=== PATIENT | male | born 1950 | race Caucasian/White ===

== ENCOUNTER 2016-05-03 15:40 | Inpatient (IN) | payer OTHER ==
[~2016-05-03] VITALS: Ht 190.5 cm; Wt 123.4 kg
[~2016-05-03 15:40] MED LIST: ACETAMINOPHEN-1 EAC1 PO; ALDACTONE25 MG PO; ASPIR-LOW81 MG PO; ATENOLOL 25 MG TABLE; BACLOFEN20 MG PO; CITALOPRAM HBR10 MG PO; COUMADIN2 MG PO; COUMADIN3 MG PO; COUMADIN4 MG PO; CYCLOBENZAPRINE10 MG PO; DESYREL100 MG PO; DOCUSATE SODIU100 MG PO; FLAGYL500 MG PO; FLUOXETINE HCL40 MG PO; FOLIC ACID1 MG PO; LASIX20 MG PO; LISINOPRIL20 MG PO; LORAZEPAM1 MG PO; NICOTINE PATCH1 EAC2 TD; OXYCODONE HCL10 MG PO; OXYCODONE HCL5 MG PO; OXYCONTIN40 MG PO; PANTOPRAZOLE SO40 MG PO; PREDNISONE20 MG PO; PROTONIX40 MG PO; QUETIAPINE FUM100 MG PO; QUETIAPINE FUMA25 MG PO; SEROQUEL200 MG PO; SPIRONOLACTONE25 MG PO; TAMSULOSIN HCL0.4 MG PO; TENORMIN25 MG; THERAGRAN1 TABLET PO; TRAMADOL HCL50 MG PO; VITAMIN B-1100 MG PO; WARFARIN SODIUM4 MG PO; WARFARIN SODIUM5 MG PO; ZOLPIDEM TARTRA10 MG PO
[2016-05-03 16:19] LABS: ADD MIUA? YES; BILIRUBIN LARGE; BLOOD NEGATIVE; GLUCOSE (STRIP) NEGATIVE; KETONES 15; LEUKOCYTES SMALL; PROTEIN (STRIP) 30; SPECIFIC GRAVITY 1.027 (1.000-1.030)
[2016-05-03 16:22] LABS: COLOR AMBER ((YELLOW))
[2016-05-03 16:28] LABS: HEMATOCRIT 39.8 % (38.0-50.0); MCH 34.7 PG (29.0-34.0); MCHC 36.2 G/DL (30.0-36.0); MCV 95.9 FL (86-99); MEAN PLAT.VOLUME 10.5 uM^3 (9.0-12.4); PLATELET COUNT 280 K/uL (156-360); RBC DIS.WIDTH-CV 18.1 % (11.8-14.6); RBC DIS.WIDTH-SD 60.6 % (39-53); RED BLOOD COUNT 4.15 M/uL (4.00-5.50); WHITE BLOOD COUNT 11.7 K/uL (4.1-10.2)
[2016-05-03 16:36] LABS: ADD MEDTOX COMMENT Y; AMPHETAMINE NEGATIVE (500 ng/mL); BARBITURATES NEGATIVE (200 ng/mL); BENZODIAZEPINES PRESUMPTIVE POSITIVE (150 ng/mL); COCAINE PRESUMPTIVE POSITIVE (150 ng/mL); ICTOTEST NEGATIVE; INTERNAL CONTROLS VALID? YES; METHADONE NEGATIVE (200 ng/mL); METHAMPHETAMINE NEGATIVE (500 ng/mL); OPIATES (MORPHINE) NEGATIVE (100 ng/mL); OXYCODONE NEGATIVE (100 ng/mL); PHENCYCLIDINE NEGATIVE (25 ng/mL); PROPOXYPHENE NEGATIVE (300 ng/mL); THC CANNABINOIDS NEGATIVE (50 ng/mL); TRICYCLIC ANTIDEPRESSANTS PRESUMPTIVE POSITIVE (300 ng/mL)
[2016-05-03 16:37] LABS: CHLORIDE 105 mEq/L (99-109); POTASSIUM 4.1 mEq/L (3.7-5.4); SODIUM 138 mEq/L (136-147)
[2016-05-03 16:38] LABS: MAGNESIUM 1.6 mg/dL (1.3-2.7)
[2016-05-03 16:39] LABS: GLUCOSE 99 mg/dL (70-99)
[2016-05-03 16:41] LABS: ANION GAP 15 MEQ/L (2-14)
[2016-05-03 16:43] LABS: GFR ESTIMATE (CALCULATED) 54 mL/min/
[2016-05-03 16:45] LABS: INTER. NORMALIZED RATIO 1.2; PROTHROMBIN TIME 12.2 (9.2-11.2); PTT 22.3 (25-32); UREA NITROGEN (BUN) 11 mg/dL (9-23)
[2016-05-03 16:46] LABS: SALICYLATE < 5.0 MG/DL (15-30)
[2016-05-03 16:50] LABS: TROP-I INTERPRETATION NEGATIVE; TROPONIN-I < 0.01 ng/mL (0.0-0.30)
[2016-05-03 16:57] LABS: RED BLOOD CELLS NONE SEEN /HPF (0-5)
[2016-05-03 16:58] LABS: BACTERIA 2+; CASTS NONE SEEN /LPF; CRYSTALS PRESENT; EPITHELIAL CELLS 1+; MUCUS 3+; UCUL ADDED? YES
[2016-05-03 16:59] LABS: URIC ACID CRYSTALS 1+
[2016-05-03 17:00] LABS: CALCIUM OXALATE CRYSTALS FEW; NITRITE POSITIVE
[2016-05-03 17:23] LABS: CREATINE KINASE 68 IU/L (1-294)
[2016-05-03 17:25] LABS: BENZODIAZEPINES, URINE SCREEN POSITIVE (200 ng/mL)
[2016-05-03 17:29] LABS: EOSINOPHIL (%) 0.1 % (0-5); HEMATOLOGY COMMENT 1 SMEAR COMPATIBLE; IMMATURE GRANULOCYTE (%) 0.3 % (0.0-0.7); IMMATURE GRANULOCYTE COUNT 0.4 K/uL; LYMPHOCYTE COUNT 1.6 K/uL (1.0-2.8); MONOCYTE (%) 17.2 % (3-12); NEUTROPHIL (%) 68.6 % (45-76); PLAT.SUFFICIENCY NORMAL
[2016-05-03] MEDS ORDERED: LIBRIUM25 MG PO (19:09)
[2016-05-03] MEDS ORDERED: SEROQUEL200 MG PO (19:09)
[2016-05-03 19:13] LABS: BASE EXCESS -3.4 mEq/L (-3 to +3); BICARBONATE 21.4 mEq/L (22-26); CARBOXY HGB 2.2 % (0-5); METHEMOGLOBIN 1.1 % (0-1.5); PCO2 37 mm Hg (35-45); PO2 58 mm Hg (80-100); pH 7.37 (7.35-7.45)
[2016-05-03 19:14] LABS: COMMENTS - BLOOD GASES C+A+; DEVICE NC; O2 FLOW 1.5 L/MIN; SITE LR; TOTAL RESP RATE 16 resp/min
[2016-05-03 21:25] VITALS: BP 145/81
[2016-05-03 23:15] VITALS: BP 133/79
[2016-05-04 03:45] VITALS: BP 132/76
[2016-05-04 06:24] LABS: HEMATOCRIT 36.6 % (38.0-50.0); MCH 34.8 PG (29.0-34.0); MCHC 35.2 G/DL (30.0-36.0); MCV 98.7 FL (86-99); MEAN PLAT.VOLUME 10.9 uM^3 (9.0-12.4); PLATELET COUNT 254 K/uL (156-360); RBC DIS.WIDTH-CV 17.4 % (11.8-14.6); RBC DIS.WIDTH-SD 62.8 % (39-53); RED BLOOD COUNT 3.71 M/uL (4.00-5.50); WHITE BLOOD COUNT 11.7 K/uL (4.1-10.2)
[2016-05-04 06:49] LABS: ALKALINE PHOSPHATASE 141 IU/L (3-129); ANION GAP 13 MEQ/L (2-14); CHLORIDE 107 MEQ/L (99-109); GFR ESTIMATE (CALCULATED) > 59 mL/min/; GLUCOSE 74 mg/dL (70-99); POTASSIUM 4.2 MEQ/L (3.7-5.4); SAMPLE HEMOLYSIS CHECK 0; SAMPLE ICTERIC CHECK 0; SAMPLE LIPEMIA CHECK 0; SODIUM 140 MEQ/L (136-147); TOTAL BILIRUBIN 1.6 MG/DL (0.0-1.0); UREA NITROGEN (BUN) 14 mg/dL (9-23)
[2016-05-04 07:16] VITALS: BP 120/63
[2016-05-04 11:45] VITALS: BP 108/56
[2016-05-04 15:28] VITALS: BP 147/84
[2016-05-04 19:10] VITALS: BP 112/65
[2016-05-04 23:00] VITALS: BP 111/58
[2016-05-05 00:27] LABS: BASE EXCESS 0.2 mEq/L (-3 to +3); BICARBONATE 23.3 mEq/L (22-26); CARBOXY HGB 3.9 % (0-5); METHEMOGLOBIN 1.9 % (0-1.5); PCO2 32 mm Hg (35-45); PO2 69 mm Hg (80-100); pH 7.47 (7.35-7.45)
[2016-05-05 00:28] LABS: COMMENTS - BLOOD GASES C+; DEVICE NC; O2 FLOW 6 L/MIN; SITE RR; TOTAL RESP RATE 16 resp/min
[2016-05-05 03:00] VITALS: BP 104/57
[2016-05-05 08:30] VITALS: BP 126/77
[2016-05-05 11:57] VITALS: BP 111/61
[2016-05-05 16:00] VITALS: BP 117/69
[2016-05-05 19:36] VITALS: BP 97/56
[2016-05-05 23:52] VITALS: BP 134/67
[2016-05-06 04:30] VITALS: BP 127/68
[2016-05-06 06:48] LABS: INTER. NORMALIZED RATIO 1.3
[2016-05-06 07:40] VITALS: BP 130/88
[2016-05-06 08:26] LABS: HEMATOCRIT 35.1 % (38.0-50.0); MCH 35.7 PG (29.0-34.0); MCHC 36.5 G/DL (30.0-36.0); MCV 97.8 FL (86-99); MEAN PLAT.VOLUME 11.4 uM^3 (9.0-12.4); PLATELET COUNT 255 K/uL (156-360); RBC DIS.WIDTH-CV 17.5 % (11.8-14.6); RBC DIS.WIDTH-SD 62.7 % (39-53); RED BLOOD COUNT 3.59 M/uL (4.00-5.50); WHITE BLOOD COUNT 10.9 K/uL (4.1-10.2)
[2016-05-06 09:06] LABS: ANION GAP 15 MEQ/L (2-14); CHLORIDE 108 MEQ/L (99-109); GFR ESTIMATE (CALCULATED) > 59 mL/min/; GLUCOSE 74 mg/dL (70-99); POTASSIUM 3.3 MEQ/L (3.7-5.4); SAMPLE HEMOLYSIS CHECK 0; SAMPLE ICTERIC CHECK 0; SAMPLE LIPEMIA CHECK 0; SODIUM 144 MEQ/L (136-147); UREA NITROGEN (BUN) 13 mg/dL (9-23)
[2016-05-06 10:36] LABS: BASE EXCESS -2.1 mEq/L (-3 to +3); BICARBONATE 20.4 mEq/L (22-26); CARBOXY HGB 2.9 % (0-5); METHEMOGLOBIN 1.4 % (0-1.5); PCO2 28 mm Hg (35-45); PO2 54 mm Hg (80-100); pH 7.47 (7.35-7.45)
[2016-05-06 10:37] LABS: COMMENTS - BLOOD GASES A+C+; DEVICE NC; O2 FLOW 6 L/MIN; SITE RR; TOTAL RESP RATE 30 resp/min
[2016-05-06 12:00] VITALS: BP 109/71
[2016-05-06 15:50] VITALS: BP 137/69
[2016-05-06 20:00] VITALS: BP 135/74
[2016-05-06 20:20] LABS: METH RESISTANT S AUREUS PCR POSITIVE (NEGATIVE)
[2016-05-06 20:29] LABS: PROBE CHECK PASS
[2016-05-06 23:40] VITALS: BP 122/70
[2016-05-07] VITALS (14 sets, daily range): BP systolic 88–134; BP diastolic 53–86
[2016-05-07 06:07] LABS: HEMATOCRIT 37.3 % (38.0-50.0); MCH 34.2 PG (29.0-34.0); MCHC 35.1 G/DL (30.0-36.0); MCV 97.4 FL (86-99); MEAN PLAT.VOLUME 10.9 uM^3 (9.0-12.4); PLATELET COUNT 259 K/uL (156-360); RBC DIS.WIDTH-CV 17.2 % (11.8-14.6); RBC DIS.WIDTH-SD 60.7 % (39-53); RED BLOOD COUNT 3.83 M/uL (4.00-5.50); WHITE BLOOD COUNT 12.9 K/uL (4.1-10.2)
[2016-05-07 06:23] LABS: EOSINOPHIL (%) 0.5 % (0-5); EOSINOPHIL COUNT 0.1 K/uL (0-0.3); IMMATURE GRANULOCYTE (%) 0.4 % (0.0-0.7); IMMATURE GRANULOCYTE COUNT 0.1 K/uL; LYMPHOCYTE COUNT 1.9 K/uL (1.0-2.8); MONOCYTE (%) 13.4 % (3-12); MONOCYTE COUNT 1.7 K/uL (0-0.8); NEUTROPHIL (%) 70.7 % (45-76); NEUTROPHIL COUNT 9.1 K/uL (1.8-6.4)
[2016-05-07 06:38] LABS: ALKALINE PHOSPHATASE 113 IU/L (3-129); ANION GAP 12 MEQ/L (2-14); CHLORIDE 108 MEQ/L (99-109); GFR ESTIMATE (CALCULATED) > 59 mL/min/; MAGNESIUM 1.8 mg/dl (1.3-2.7); POTASSIUM 2.8 MEQ/L (3.7-5.4); SAMPLE HEMOLYSIS CHECK 0; SAMPLE ICTERIC CHECK 0; SAMPLE LIPEMIA CHECK 0; SODIUM 145 MEQ/L (136-147); TOTAL BILIRUBIN 1.4 MG/DL (0.0-1.0); UREA NITROGEN (BUN) 14 mg/dL (9-23)
[2016-05-07 06:41] LABS: GLUCOSE 95 mg/dL (70-99)
[2016-05-07 07:08] LABS: INTER. NORMALIZED RATIO 1.7; PROTHROMBIN TIME 18.1 (9.2-11.2)
[2016-05-07 09:17] LABS: HEMATOLOGY COMMENT 1 SMEAR COMPATIBLE; USER ID SDF
[2016-05-07 13:18] LABS: TROP-I INTERPRETATION NEGATIVE; TROPONIN-I 0.01 ng/mL (0.0-0.30)
[2016-05-07 18:02] LABS: BASE EXCESS 1.9 mEq/L (-3 to +3); BICARBONATE 28.2 mEq/L (22-26); CARBOXY HGB 2.4 % (0-5); COMMENTS - BLOOD GASES A+C+; DEVICE 840; FI02 100 %; METHEMOGLOBIN 1.5 % (0-1.5); PCO2 50 mm Hg (35-45); PO2 287 mm Hg (80-100); SITE RR; pH 7.36 (7.35-7.45)
[2016-05-07 18:03] LABS: MECHANICAL RATE 25 resp/min; MODE A/C; PEEP 10 CM/H20; TIDAL VOLUME 540 ML; TOTAL RESP RATE 25 resp/min
[2016-05-08] VITALS (24 sets, daily range): BP systolic 82–117; BP diastolic 44–68
[2016-05-08 05:18] LABS: BASE EXCESS -0.8 mEq/L (-3 to +3); BICARBONATE 25.4 mEq/L (22-26); CARBOXY HGB 2.1 % (0-5); METHEMOGLOBIN 1.3 % (0-1.5); PCO2 47 mm Hg (35-45); pH 7.34 (7.35-7.45)
[2016-05-08 05:19] LABS: DEVICE 840; FI02 50 %; MECHANICAL RATE 25 resp/min; MODE AC; PEEP 10 CM/H20; PO2 78 mm Hg (80-100); SITE RR; TIDAL VOLUME 540 ML; TOTAL RESP RATE 28 resp/min
[2016-05-08 05:44] LABS: HEMATOCRIT 36.8 % (38.0-50.0); MCH 33.5 PG (29.0-34.0); MCV 98.7 FL (86-99); MEAN PLAT.VOLUME 11.7 uM^3 (9.0-12.4); NRBC (%) 0.2 /100 WBC (0-0); PLATELET COUNT 258 K/uL (156-360); RBC DIS.WIDTH-CV 17.7 % (11.8-14.6); RBC DIS.WIDTH-SD 63.6 % (39-53); RED BLOOD COUNT 3.73 M/uL (4.00-5.50); WHITE BLOOD COUNT 10.2 K/uL (4.1-10.2)
[2016-05-08 05:52] LABS: INTER. NORMALIZED RATIO 1.9; PROTHROMBIN TIME 19.9 (9.2-11.2)
[2016-05-08 06:40] LABS: ALKALINE PHOSPHATASE 100 IU/L (3-129); ANION GAP 12 MEQ/L (2-14); CHLORIDE 110 MEQ/L (99-109); GFR ESTIMATE (CALCULATED) > 59 mL/min/; SAMPLE HEMOLYSIS CHECK 2; SAMPLE ICTERIC CHECK 0; SAMPLE LIPEMIA CHECK 0; SODIUM 144 MEQ/L (136-147); UREA NITROGEN (BUN) 17 mg/dL (9-23)
[2016-05-08 06:48] LABS: EOSINOPHIL (%) 0.1 % (0-5); IMMATURE GRANULOCYTE (%) 0.4 % (0.0-0.7); LYMPHOCYTE COUNT 1.3 K/uL (1.0-2.8); MONOCYTE (%) 5.3 % (3-12); MONOCYTE COUNT 0.5 K/uL (0-0.8); NEUTROPHIL (%) 81.3 % (45-76); NEUTROPHIL COUNT 8.3 K/uL (1.8-6.4)
[2016-05-08 06:50] LABS: GLUCOSE 161 mg/dL (70-99)
[2016-05-08 06:51] LABS: POTASSIUM 3.7 MEQ/L (3.7-5.4); TOTAL BILIRUBIN 0.8 MG/DL (0.0-1.0)
[2016-05-08 08:04] LABS: NO-CHARGE AST (GOT) 32 IU/L (15-37); POTASSIUM 3.1 MEQ/L (3.7-5.4)
[2016-05-08 16:45] LABS: ANION GAP 9 MEQ/L (2-14); CHLORIDE 110 MEQ/L (99-109); GFR ESTIMATE (CALCULATED) > 59 mL/min/; GLUCOSE 146 mg/dL (70-99); POTASSIUM 4.1 MEQ/L (3.7-5.4); SAMPLE HEMOLYSIS CHECK 1; SAMPLE ICTERIC CHECK 0; SAMPLE LIPEMIA CHECK 0; SODIUM 144 MEQ/L (136-147); UREA NITROGEN (BUN) 19 mg/dL (9-23)
[2016-05-09] VITALS (24 sets, daily range): BP systolic 81–100; BP diastolic 47–65
[2016-05-09 06:31] LABS: ANION GAP 7 MEQ/L (2-14); CHLORIDE 112 MEQ/L (99-109); GFR ESTIMATE (CALCULATED) > 59 mL/min/; GLUCOSE 133 mg/dL (70-99); MAGNESIUM 2.3 mg/dl (1.3-2.7); POTASSIUM 3.6 MEQ/L (3.7-5.4); SAMPLE HEMOLYSIS CHECK 0; SAMPLE ICTERIC CHECK 0; SAMPLE LIPEMIA CHECK 0; SODIUM 146 MEQ/L (136-147); UREA NITROGEN (BUN) 26 mg/dL (9-23)
[2016-05-09 06:35] LABS: HEMATOCRIT 32.8 % (38.0-50.0); MCH 34.8 PG (29.0-34.0); MCHC 35.4 G/DL (30.0-36.0); MCV 98.5 FL (86-99); MEAN PLAT.VOLUME 11.6 uM^3 (9.0-12.4); PLATELET COUNT 263 K/uL (156-360); RBC DIS.WIDTH-CV 17.8 % (11.8-14.6); RBC DIS.WIDTH-SD 63.6 % (39-53); RED BLOOD COUNT 3.33 M/uL (4.00-5.50)
[2016-05-09 06:36] LABS: WHITE BLOOD COUNT 17.1 K/uL (4.1-10.2)
[2016-05-09 06:47] LABS: INTER. NORMALIZED RATIO 1.7; PROTHROMBIN TIME 17.7 (9.2-11.2)
[2016-05-09 16:31] LABS: ANION GAP 7 MEQ/L (2-14); CHLORIDE 113 MEQ/L (99-109); GFR ESTIMATE (CALCULATED) > 59 mL/min/; GLUCOSE 140 mg/dL (70-99); MAGNESIUM 2.4 mg/dl (1.3-2.7); SAMPLE HEMOLYSIS CHECK 0; SAMPLE ICTERIC CHECK 0; SAMPLE LIPEMIA CHECK 0; SODIUM 146 MEQ/L (136-147); UREA NITROGEN (BUN) 31 mg/dL (9-23)
[2016-05-10] VITALS (24 sets, daily range): BP systolic 79–118; BP diastolic 42–70
[2016-05-10 06:04] LABS: HEMATOCRIT 33.2 % (38.0-50.0); MCH 33.3 PG (29.0-34.0); MCHC 33.1 G/DL (30.0-36.0); MCV 100.6 FL (86-99); MEAN PLAT.VOLUME 11.5 uM^3 (9.0-12.4); PLATELET COUNT 255 K/uL (156-360); RBC DIS.WIDTH-CV 18.1 % (11.8-14.6); RBC DIS.WIDTH-SD 65.9 % (39-53); WHITE BLOOD COUNT 15.8 K/uL (4.1-10.2)
[2016-05-10 06:37] LABS: INTER. NORMALIZED RATIO 1.4; PROTHROMBIN TIME 14.4 (9.2-11.2)
[2016-05-10 06:42] LABS: ANION GAP 8 MEQ/L (2-14); CHLORIDE 111 MEQ/L (99-109); GFR ESTIMATE (CALCULATED) > 59 mL/min/; GLUCOSE 129 mg/dL (70-99); MAGNESIUM 2.3 mg/dl (1.3-2.7); POTASSIUM 4.1 MEQ/L (3.7-5.4); SAMPLE HEMOLYSIS CHECK 0; SAMPLE ICTERIC CHECK 0; SAMPLE LIPEMIA CHECK 0; SODIUM 146 MEQ/L (136-147); UREA NITROGEN (BUN) 37 mg/dL (9-23)
[2016-05-10 16:02] LABS: INFLUENZA A VIRAL ANTIGEN NEGATIVE; INFLUENZA B VIRAL ANTIGEN NEGATIVE
[2016-05-10 16:18] LABS: ANION GAP 8 MEQ/L (2-14); CHLORIDE 112 MEQ/L (99-109); GFR ESTIMATE (CALCULATED) > 59 mL/min/; GLUCOSE 122 mg/dL (70-99); MAGNESIUM 2.4 mg/dl (1.3-2.7); POTASSIUM 4.4 MEQ/L (3.7-5.4); SAMPLE HEMOLYSIS CHECK 0; SAMPLE ICTERIC CHECK 0; SAMPLE LIPEMIA CHECK 0; SODIUM 148 MEQ/L (136-147); UREA NITROGEN (BUN) 40 mg/dL (9-23)
[2016-05-11] VITALS (20 sets, daily range): BP systolic 86–109; BP diastolic 50–69
[2016-05-11 05:27] LABS: HEMATOCRIT 36.1 % (38.0-50.0); MCH 33.6 PG (29.0-34.0); MCHC 32.7 G/DL (30.0-36.0); MCV 102.8 FL (86-99); MEAN PLAT.VOLUME 11.8 uM^3 (9.0-12.4); PLATELET COUNT 270 K/uL (156-360); RBC DIS.WIDTH-CV 18.7 % (11.8-14.6); RBC DIS.WIDTH-SD 69.7 % (39-53); RED BLOOD COUNT 3.51 M/uL (4.00-5.50); WHITE BLOOD COUNT 12.8 K/uL (4.1-10.2)
[2016-05-11 05:35] LABS: BASE EXCESS 3.9 mEq/L (-3 to +3); CARBOXY HGB 2.3 % (0-5); METHEMOGLOBIN 1.5 % (0-1.5); PO2 80 mm Hg (80-100); pH 7.31 (7.35-7.45)
[2016-05-11 05:36] LABS: BICARBONATE 31.7 mEq/L (22-26); COMMENTS - BLOOD GASES C+A+; DEVICE VENTILATOR; FI02 60 %; MECHANICAL RATE 15 resp/min; MODE AC; PCO2 63 mm Hg (35-45); PEEP 10 CM/H20; SITE LR; TIDAL VOLUME 550 ML; TOTAL RESP RATE 20 resp/min
[2016-05-11 05:51] LABS: INTER. NORMALIZED RATIO 1.3; PROTHROMBIN TIME 12.9 (9.2-11.2)
[2016-05-11 06:39] LABS: ANION GAP 7 MEQ/L (2-14); CHLORIDE 110 MEQ/L (99-109); GFR ESTIMATE (CALCULATED) > 59 mL/min/; GLUCOSE 130 mg/dL (70-99); MAGNESIUM 2.4 mg/dl (1.3-2.7); POTASSIUM 4.5 MEQ/L (3.7-5.4); SAMPLE HEMOLYSIS CHECK 0; SAMPLE ICTERIC CHECK 0; SAMPLE LIPEMIA CHECK 0; SODIUM 147 MEQ/L (136-147); UREA NITROGEN (BUN) 38 mg/dL (9-23)
[2016-05-11 07:50] LABS: FACTOR Xa INHIBITION (LMWH) 0.6 IU/mL
[2016-05-12] VITALS (19 sets, daily range): BP systolic 82–118; BP diastolic 51–65
[2016-05-12 05:46] LABS: HEMATOCRIT 37.6 % (38.0-50.0); MCH 33.8 PG (29.0-34.0); MCHC 32.7 G/DL (30.0-36.0); MCV 103.3 FL (86-99); PLATELET COUNT 274 K/uL (156-360); RBC DIS.WIDTH-CV 18.4 % (11.8-14.6); RBC DIS.WIDTH-SD 68.8 % (39-53); RED BLOOD COUNT 3.64 M/uL (4.00-5.50); WHITE BLOOD COUNT 14.3 K/uL (4.1-10.2)
[2016-05-12 06:05] LABS: INTER. NORMALIZED RATIO 1.2; PROTHROMBIN TIME 12.6 (9.2-11.2)
[2016-05-12 06:43] LABS: ANION GAP 7 MEQ/L (2-14); CHLORIDE 108 MEQ/L (99-109); GFR ESTIMATE (CALCULATED) > 59 mL/min/; GLUCOSE 139 mg/dL (70-99); MAGNESIUM 2.4 mg/dl (1.3-2.7); POTASSIUM 4.7 MEQ/L (3.7-5.4); SAMPLE HEMOLYSIS CHECK 0; SAMPLE ICTERIC CHECK 0; SAMPLE LIPEMIA CHECK 0; SODIUM 147 MEQ/L (136-147); UREA NITROGEN (BUN) 42 mg/dL (9-23)
[2016-05-13] VITALS (21 sets, daily range): BP systolic 91–122; BP diastolic 50–64
[2016-05-13 05:59] LABS: ANION GAP 9 MEQ/L (2-14); CHLORIDE 106 MEQ/L (99-109); GFR ESTIMATE (CALCULATED) > 59 mL/min/; GLUCOSE 116 mg/dL (70-99); MAGNESIUM 2.4 mg/dl (1.3-2.7); POTASSIUM 4.7 MEQ/L (3.7-5.4); SAMPLE HEMOLYSIS CHECK 0; SAMPLE ICTERIC CHECK 0; SAMPLE LIPEMIA CHECK 0; SODIUM 150 MEQ/L (136-147); UREA NITROGEN (BUN) 50 mg/dL (9-23)
[2016-05-14] VITALS (23 sets, daily range): BP systolic 97–121; BP diastolic 56–77
[2016-05-14 05:53] LABS: POINT-OF-CARE METER ID UU13113803
[2016-05-14 06:14] LABS: ANION GAP 8 MEQ/L (2-14); CHLORIDE 106 MEQ/L (99-109); GFR ESTIMATE (CALCULATED) > 59 mL/min/; GLUCOSE 100 mg/dL (70-99); MAGNESIUM 2.6 mg/dl (1.3-2.7); POTASSIUM 4.6 MEQ/L (3.7-5.4); SAMPLE HEMOLYSIS CHECK 0; SAMPLE ICTERIC CHECK 0; SAMPLE LIPEMIA CHECK 0; SODIUM 151 MEQ/L (136-147); UREA NITROGEN (BUN) 52 mg/dL (9-23)
[2016-05-14 10:52] LABS: HEMATOCRIT 37.1 % (38.0-50.0); MCH 34.7 PG (29.0-34.0); MCHC 33.7 G/DL (30.0-36.0); MCV 103.1 FL (86-99); MEAN PLAT.VOLUME 12.4 uM^3 (9.0-12.4); NRBC (%) 0.2 /100 WBC (0-0); PLATELET COUNT 275 K/uL (156-360); RBC DIS.WIDTH-SD 68.1 % (39-53); WHITE BLOOD COUNT 16.5 K/uL (4.1-10.2)
[2016-05-14 10:58] LABS: EOSINOPHIL (%) 0.3 % (0-5); EOSINOPHIL COUNT 0.1 K/uL (0-0.3); IMMATURE GRANULOCYTE (%) 0.7 % (0.0-0.7); IMMATURE GRANULOCYTE COUNT 0.1 K/uL; LYMPHOCYTE COUNT 1.2 K/uL (1.0-2.8); MONOCYTE (%) 14.8 % (3-12); MONOCYTE COUNT 2.5 K/uL (0-0.8); NEUTROPHIL (%) 77.1 % (45-76); NEUTROPHIL COUNT 12.7 K/uL (1.8-6.4)
[2016-05-14 11:40] LABS: HEMATOLOGY COMMENT 1 SMEAR COMPATIBLE; USER ID STC
[2016-05-14 12:34] LABS: POINT-OF-CARE METER ID UU13113803
[2016-05-14 17:26] LABS: POINT-OF-CARE METER ID UU14174217
[2016-05-14 23:56] LABS: POINT-OF-CARE METER ID UU13113803
[2016-05-15] VITALS (24 sets, daily range): BP systolic 0–116; BP diastolic 0–70
[2016-05-15 05:19] LABS: HEMATOCRIT 36.2 % (38.0-50.0); MCH 33.3 PG (29.0-34.0); MCHC 32.3 G/DL (30.0-36.0); MCV 103.1 FL (86-99); MEAN PLAT.VOLUME 12.3 uM^3 (9.0-12.4); PLATELET COUNT 273 K/uL (156-360); RBC DIS.WIDTH-CV 18.1 % (11.8-14.6); RBC DIS.WIDTH-SD 67.4 % (39-53); RED BLOOD COUNT 3.51 M/uL (4.00-5.50); WHITE BLOOD COUNT 18.5 K/uL (4.1-10.2)
[2016-05-15 05:46] LABS: ANION GAP 5 MEQ/L (2-14); CHLORIDE 107 MEQ/L (99-109); GFR ESTIMATE (CALCULATED) > 59 mL/min/; GLUCOSE 111 mg/dL (70-99); MAGNESIUM 2.8 mg/dl (1.3-2.7); POTASSIUM 4.4 MEQ/L (3.7-5.4); SAMPLE HEMOLYSIS CHECK 0; SAMPLE ICTERIC CHECK 0; SAMPLE LIPEMIA CHECK 0; SODIUM 149 MEQ/L (136-147); UREA NITROGEN (BUN) 54 mg/dL (9-23)
[2016-05-15 06:10] LABS: EOSINOPHIL (%) 0.4 % (0-5); EOSINOPHIL COUNT 0.1 K/uL (0-0.3); IMMATURE GRANULOCYTE (%) 1.3 % (0.0-0.7); IMMATURE GRANULOCYTE COUNT 0.2 K/uL; LYMPHOCYTE COUNT 1.8 K/uL (1.0-2.8); MONOCYTE COUNT 2.8 K/uL (0-0.8); NEUTROPHIL (%) 73.2 % (45-76); NEUTROPHIL COUNT 13.6 K/uL (1.8-6.4)
[2016-05-15 06:58] LABS: HEMATOLOGY COMMENT 1 SMEAR COMPATIBLE; PLAT.SUFFICIENCY ADEQUATE
[2016-05-15 14:38] LABS: POINT-OF-CARE METER ID UU13113748; POINT-OF-CARE USER ID 606021424
[2016-05-15 19:45] LABS: POINT-OF-CARE METER ID UU13113748
[2016-05-16] VITALS (24 sets, daily range): BP systolic 88–119; BP diastolic 52–71
[2016-05-16 00:49] LABS: POINT-OF-CARE METER ID UU13113803
[2016-05-16 05:49] LABS: POINT-OF-CARE METER ID UU13113803
[2016-05-16 05:53] LABS: HEMATOCRIT 35.6 % (38.0-50.0); MCH 33.8 PG (29.0-34.0); MCHC 32.6 G/DL (30.0-36.0); MCV 103.8 FL (86-99); MEAN PLAT.VOLUME 12.8 uM^3 (9.0-12.4); PLATELET COUNT 269 K/uL (156-360); RBC DIS.WIDTH-CV 18.3 % (11.8-14.6); RED BLOOD COUNT 3.43 M/uL (4.00-5.50); WHITE BLOOD COUNT 19.6 K/uL (4.1-10.2)
[2016-05-16 06:04] LABS: ANION GAP 6 MEQ/L (2-14); CHLORIDE 108 MEQ/L (99-109); GFR ESTIMATE (CALCULATED) > 59 mL/min/; GLUCOSE 108 mg/dL (70-99); MAGNESIUM 2.9 mg/dl (1.3-2.7); POTASSIUM 4.5 MEQ/L (3.7-5.4); SAMPLE HEMOLYSIS CHECK 0; SAMPLE ICTERIC CHECK 0; SAMPLE LIPEMIA CHECK 0; SODIUM 151 MEQ/L (136-147); UREA NITROGEN (BUN) 51 mg/dL (9-23)
[2016-05-16 06:26] LABS: EOSINOPHIL (%) 0.5 % (0-5); EOSINOPHIL COUNT 0.1 K/uL (0-0.3); IMMATURE GRANULOCYTE (%) 1.3 % (0.0-0.7); IMMATURE GRANULOCYTE COUNT 0.3 K/uL; LYMPHOCYTE COUNT 2.4 K/uL (1.0-2.8); MONOCYTE (%) 13.6 % (3-12); MONOCYTE COUNT 2.7 K/uL (0-0.8); NEUTROPHIL COUNT 14.1 K/uL (1.8-6.4)
[2016-05-16 07:15] LABS: HEMATOLOGY COMMENT 1 SMEAR COMPATIBLE; USER ID CL
[2016-05-16 12:44] LABS: POINT-OF-CARE METER ID UU13113803
[2016-05-16 15:45] LABS: POINT-OF-CARE METER ID UU13113803
[2016-05-17] VITALS (24 sets, daily range): BP systolic 82–117; BP diastolic 51–73
[2016-05-17 01:20] LABS: POINT-OF-CARE METER ID UU13113803
[2016-05-17 05:38] LABS: POINT-OF-CARE METER ID UU13113731
[2016-05-17 06:02] LABS: HEMATOCRIT 37.1 % (38.0-50.0); MCH 33.2 PG (29.0-34.0); MCHC 31.5 G/DL (30.0-36.0); MCV 105.4 FL (86-99); MEAN PLAT.VOLUME 12.8 uM^3 (9.0-12.4); PLATELET COUNT 290 K/uL (156-360); RBC DIS.WIDTH-CV 17.9 % (11.8-14.6); RBC DIS.WIDTH-SD 68.3 % (39-53); RED BLOOD COUNT 3.52 M/uL (4.00-5.50); WHITE BLOOD COUNT 20.6 K/uL (4.1-10.2)
[2016-05-17 06:16] LABS: EOSINOPHIL (%) 4.3 % (0-5); EOSINOPHIL COUNT 0.9 K/uL (0-0.3); IMMATURE GRANULOCYTE (%) 1.6 % (0.0-0.7); IMMATURE GRANULOCYTE COUNT 0.3 K/uL; LYMPHOCYTE COUNT 3.3 K/uL (1.0-2.8); MONOCYTE (%) 8.4 % (3-12); MONOCYTE COUNT 1.7 K/uL (0-0.8); NEUTROPHIL (%) 69.5 % (45-76); NEUTROPHIL COUNT 14.3 K/uL (1.8-6.4)
[2016-05-17 06:28] LABS: ALKALINE PHOSPHATASE 110 IU/L (3-129); ANION GAP 9 MEQ/L (2-14); CHLORIDE 107 MEQ/L (99-109); DIRECT BILIRUBIN 0.3 mg/dL (0.0-0.3); GFR ESTIMATE (CALCULATED) > 59 mL/min/; GLUCOSE 90 mg/dL (70-99); MAGNESIUM 2.5 mg/dl (1.3-2.7); POTASSIUM 4.3 MEQ/L (3.7-5.4); SAMPLE HEMOLYSIS CHECK 0; SAMPLE ICTERIC CHECK 0; SAMPLE LIPEMIA CHECK 0; SODIUM 148 MEQ/L (136-147); TOTAL BILIRUBIN 0.8 MG/DL (0.0-1.0); UREA NITROGEN (BUN) 44 mg/dL (9-23)
[2016-05-17 12:02] LABS: POINT-OF-CARE METER ID UU13113731
[2016-05-17 14:13] LABS: HEMATOLOGY COMMENT 1 SMEAR COMPATIBLE; USER ID SDF
[2016-05-17 18:24] LABS: POINT-OF-CARE METER ID UU13113731
[2016-05-18] VITALS (24 sets, daily range): BP systolic 95–126; BP diastolic 56–75
[2016-05-18 04:50] LABS: HEMATOCRIT 33.1 % (38.0-50.0); MCH 34.3 PG (29.0-34.0); MCHC 33.5 G/DL (30.0-36.0); MCV 102.2 FL (86-99); MEAN PLAT.VOLUME 11.9 uM^3 (9.0-12.4); PLATELET COUNT 268 K/uL (156-360); RBC DIS.WIDTH-CV 17.8 % (11.8-14.6); RBC DIS.WIDTH-SD 63.1 % (39-53); RED BLOOD COUNT 3.24 M/uL (4.00-5.50); WHITE BLOOD COUNT 19.3 K/uL (4.1-10.2)
[2016-05-18 04:58] LABS: CHLORIDE 108 mEq/L (99-109); POTASSIUM 3.9 mEq/L (3.7-5.4); SODIUM 145 mEq/L (136-147)
[2016-05-18 04:59] LABS: MAGNESIUM 2.2 mg/dL (1.3-2.7)
[2016-05-18 05:00] LABS: GLUCOSE 107 mg/dL (70-99)
[2016-05-18 05:02] LABS: ANION GAP 10 MEQ/L (2-14)
[2016-05-18 05:04] LABS: GFR ESTIMATE (CALCULATED) > 59 mL/min/
[2016-05-18 05:05] LABS: UREA NITROGEN (BUN) 37 mg/dL (9-23)
[2016-05-18 06:16] LABS: EOSINOPHIL COUNT 0.8 K/uL (0-0.3); IMMATURE GRANULOCYTE (%) 1.3 % (0.0-0.7); IMMATURE GRANULOCYTE COUNT 2.5 K/uL; LYMPHOCYTE COUNT 3.1 K/uL (1.0-2.8); MONOCYTE (%) 10.9 % (3-12); MONOCYTE COUNT 2.1 K/uL (0-0.8); NEUTROPHIL (%) 67.8 % (45-76); NEUTROPHIL COUNT 13.1 K/uL (1.8-6.4)
[2016-05-18 07:15] LABS: ANISOCYTOSIS 1+; HEMATOLOGY COMMENT 1 SMEAR COMPATIBLE; MACROCYTES 1+; USER ID CCL
[2016-05-18 14:46] LABS: BASE EXCESS 8.1 mEq/L (-3 to +3); CARBOXY HGB 2.5 % (0-5); METHEMOGLOBIN 2.3 % (0-1.5); PCO2 41 mm Hg (35-45); PO2 82 mm Hg (80-100)
[2016-05-18 14:47] LABS: COMMENTS - BLOOD GASES NAC+; DEVICE 840; FI02 75 %; INSPIRATION TIME 0.9 seconds; MECHANICAL RATE 18 resp/min; MODE A/C; PEEP 5 CM/H20; SITE LR; TIDAL VOLUME 520 ML; TOTAL RESP RATE 33 resp/min
[2016-05-19] VITALS (24 sets, daily range): BP systolic 90–127; BP diastolic 51–74
[2016-05-19 00:20] LABS: POINT-OF-CARE METER ID UU13113803
[2016-05-19 05:37] LABS: HEMATOCRIT 31.5 % (38.0-50.0); MCH 33.1 PG (29.0-34.0); MCHC 32.4 G/DL (30.0-36.0); MCV 102.3 FL (86-99); MEAN PLAT.VOLUME 12.3 uM^3 (9.0-12.4); PLATELET COUNT 269 K/uL (156-360); RBC DIS.WIDTH-CV 17.1 % (11.8-14.6); RBC DIS.WIDTH-SD 63.7 % (39-53); RED BLOOD COUNT 3.08 M/uL (4.00-5.50); WHITE BLOOD COUNT 21.5 K/uL (4.1-10.2)
[2016-05-19 05:57] LABS: POINT-OF-CARE METER ID UU13113803
[2016-05-19 06:21] LABS: EOSINOPHIL (%) 2.4 % (0-5); EOSINOPHIL COUNT 0.5 K/uL (0-0.3); IMMATURE GRANULOCYTE (%) 0.9 % (0.0-0.7); IMMATURE GRANULOCYTE COUNT 0.2 K/uL; LYMPHOCYTE COUNT 1.7 K/uL (1.0-2.8); MONOCYTE (%) 8.7 % (3-12); MONOCYTE COUNT 1.9 K/uL (0-0.8); NEUTROPHIL (%) 79.8 % (45-76); NEUTROPHIL COUNT 17.1 K/uL (1.8-6.4)
[2016-05-19 06:47] LABS: ANION GAP 4 MEQ/L (2-14); CHLORIDE 106 MEQ/L (99-109); GFR ESTIMATE (CALCULATED) > 59 mL/min/; GLUCOSE 101 mg/dL (70-99); POTASSIUM 3.9 MEQ/L (3.7-5.4); SAMPLE HEMOLYSIS CHECK 0; SAMPLE ICTERIC CHECK 0; SAMPLE LIPEMIA CHECK 0; SODIUM 141 MEQ/L (136-147); UREA NITROGEN (BUN) 30 mg/dL (9-23)
[2016-05-19 07:01] LABS: MAGNESIUM 2.1 mg/dl (1.3-2.7)
[2016-05-19 08:06] LABS: ANISOCYTOSIS 1+; HEMATOLOGY COMMENT 1 SMEAR COMPATIBLE; HYPOCHROMASIA 1+; MACROCYTES 1+; PLAT.SUFFICIENCY ADEQUATE; TARGET CELLS OCC; USER ID TLW
[2016-05-19 09:05] LABS: ALKALINE PHOSPHATASE 97 IU/L (3-129); CREATINE KINASE 15 IU/L (1-294); DIRECT BILIRUBIN 0.7 mg/dL (0.0-0.3)
[2016-05-19 09:06] LABS: TOTAL BILIRUBIN 1.5 MG/DL (0.0-1.0)
[2016-05-19 09:07] LABS: BASE EXCESS 7.9 mEq/L (-3 to +3); CARBOXY HGB 2.6 % (0-5); PCO2 42 mm Hg (35-45); PO2 75 mm Hg (80-100); SITE LR; pH 7.49 (7.35-7.45)
[2016-05-19 09:08] LABS: COMMENTS - BLOOD GASES A+C+; DEVICE 840 PB; FI02 60 %; INSPIRATION TIME 0.92 seconds; MECHANICAL RATE 18 resp/min; MODE ACVC+; PEEP 10 CM/H20; TIDAL VOLUME 520 ML; TOTAL RESP RATE 33 resp/min
[2016-05-19 12:54] LABS: POINT-OF-CARE METER ID UU13113803
[2016-05-19 18:25] LABS: POINT-OF-CARE METER ID UU14174217; POINT-OF-CARE USER ID 606021424
[2016-05-20] VITALS (24 sets, daily range): BP systolic 85–118; BP diastolic 53–70
[2016-05-20 01:25] LABS: POINT-OF-CARE METER ID UU13113803
[2016-05-20 04:47] LABS: HEMATOCRIT 29.5 % (38.0-50.0); MCH 34.1 PG (29.0-34.0); MCHC 33.6 G/DL (30.0-36.0); MCV 101.7 FL (86-99); MEAN PLAT.VOLUME 11.9 uM^3 (9.0-12.4); PLATELET COUNT 248 K/uL (156-360); RBC DIS.WIDTH-SD 60.3 % (39-53); WHITE BLOOD COUNT 21.3 K/uL (4.1-10.2)
[2016-05-20 04:57] LABS: CHLORIDE 107 mEq/L (99-109); POTASSIUM 3.6 mEq/L (3.7-5.4); SODIUM 141 mEq/L (136-147)
[2016-05-20 04:58] LABS: MAGNESIUM 1.9 mg/dL (1.3-2.7)
[2016-05-20 04:59] LABS: GLUCOSE 110 mg/dL (70-99)
[2016-05-20 05:00] LABS: ANION GAP 9 MEQ/L (2-14)
[2016-05-20 05:03] LABS: GFR ESTIMATE (CALCULATED) > 59 mL/min/
[2016-05-20 05:04] LABS: UREA NITROGEN (BUN) 31 mg/dL (9-23)
[2016-05-20 06:13] LABS: POINT-OF-CARE METER ID UU13113731
[2016-05-20 06:57] LABS: EOSINOPHIL (%) 2.8 % (0-5); EOSINOPHIL COUNT 0.6 K/uL (0-0.3); HEMATOLOGY COMMENT 1 SMEAR COMPATIBLE; IMMATURE GRANULOCYTE (%) 0.8 % (0.0-0.7); IMMATURE GRANULOCYTE COUNT 1.8 K/uL; LYMPHOCYTE COUNT 1.9 K/uL (1.0-2.8); MONOCYTE (%) 9.1 % (3-12); MONOCYTE COUNT 1.9 K/uL (0-0.8); NEUTROPHIL (%) 78.2 % (45-76); NEUTROPHIL COUNT 16.7 K/uL (1.8-6.4); USER ID CL
[2016-05-20 23:30] LABS: POINT-OF-CARE METER ID UU13113731
[2016-05-21] VITALS (28 sets, daily range): BP systolic 78–116; BP diastolic 44–71
[2016-05-21 05:17] LABS: POINT-OF-CARE METER ID UU13113803
[2016-05-21 06:43] LABS: HEMATOCRIT 27.3 % (38.0-50.0); MCH 33.5 PG (29.0-34.0); MCHC 33.3 G/DL (30.0-36.0); MCV 100.4 FL (86-99); MEAN PLAT.VOLUME 11.8 uM^3 (9.0-12.4); PLATELET COUNT 253 K/uL (156-360); RBC DIS.WIDTH-CV 16.6 % (11.8-14.6); RBC DIS.WIDTH-SD 60.3 % (39-53); RED BLOOD COUNT 2.72 M/uL (4.00-5.50)
[2016-05-21 06:49] LABS: EOSINOPHIL (%) 3.2 % (0-5); EOSINOPHIL COUNT 0.6 K/uL (0-0.3); IMMATURE GRANULOCYTE (%) 0.7 % (0.0-0.7); IMMATURE GRANULOCYTE COUNT 0.1 K/uL; MONOCYTE (%) 8.8 % (3-12); MONOCYTE COUNT 1.7 K/uL (0-0.8); NEUTROPHIL (%) 76.8 % (45-76); NEUTROPHIL COUNT 14.6 K/uL (1.8-6.4)
[2016-05-21 07:07] LABS: ANION GAP 7 MEQ/L (2-14); CHLORIDE 104 MEQ/L (99-109); GFR ESTIMATE (CALCULATED) > 59 mL/min/; GLUCOSE 95 mg/dL (70-99); POTASSIUM 3.6 MEQ/L (3.7-5.4); SAMPLE HEMOLYSIS CHECK 0; SAMPLE ICTERIC CHECK 0; SAMPLE LIPEMIA CHECK 0; SODIUM 140 MEQ/L (136-147); UREA NITROGEN (BUN) 30 mg/dL (9-23)
[2016-05-21 09:20] LABS: HEMATOLOGY COMMENT 1 SMEAR COMPATIBLE; USER ID LYM
[2016-05-21 12:05] LABS: POINT-OF-CARE METER ID UU13113803
[2016-05-21 18:26] LABS: POINT-OF-CARE METER ID UU13113803
[2016-05-22] VITALS (24 sets, daily range): BP systolic 93–118; BP diastolic 50–72
[2016-05-22 01:25] LABS: POINT-OF-CARE METER ID UU13113803; POINT-OF-CARE USER ID PHATLC
[2016-05-22 06:23] LABS: MCH 34.1 PG (29.0-34.0); MCHC 33.2 G/DL (30.0-36.0); MCV 102.6 FL (86-99); MEAN PLAT.VOLUME 12.1 uM^3 (9.0-12.4); PLATELET COUNT 244 K/uL (156-360); RBC DIS.WIDTH-CV 16.6 % (11.8-14.6); RBC DIS.WIDTH-SD 61.6 % (39-53); RED BLOOD COUNT 2.73 M/uL (4.00-5.50); WHITE BLOOD COUNT 17.4 K/uL (4.1-10.2)
[2016-05-22 06:29] LABS: POINT-OF-CARE METER ID UU13113803; POINT-OF-CARE USER ID PHATLC
[2016-05-22 06:34] LABS: BASOPHIL COUNT 0.1 K/uL (0-0.1); EOSINOPHIL COUNT 1.4 K/uL (0-0.3); IMMATURE GRANULOCYTE COUNT 0.2 K/uL; LYMPHOCYTE COUNT 2.4 K/uL (1.0-2.8); MONOCYTE (%) 6.2 % (3-12); MONOCYTE COUNT 1.1 K/uL (0-0.8); NEUTROPHIL (%) 70.6 % (45-76); NEUTROPHIL COUNT 12.3 K/uL (1.8-6.4)
[2016-05-22 06:51] LABS: ANION GAP 8 MEQ/L (2-14); CHLORIDE 105 MEQ/L (99-109); GFR ESTIMATE (CALCULATED) > 59 mL/min/; GLUCOSE 102 mg/dL (70-99); MAGNESIUM 2.1 mg/dl (1.3-2.7); SAMPLE HEMOLYSIS CHECK 0; SAMPLE ICTERIC CHECK 0; SAMPLE LIPEMIA CHECK 0; SODIUM 140 MEQ/L (136-147); UREA NITROGEN (BUN) 29 mg/dL (9-23)
[2016-05-22 07:52] LABS: HEMATOLOGY COMMENT 1 SMEAR COMPATIBLE; USER ID LYM
[2016-05-22 11:59] LABS: POINT-OF-CARE METER ID UU13113803
[2016-05-22 18:31] LABS: POINT-OF-CARE METER ID UU13113803
[2016-05-23] VITALS (18 sets, daily range): BP systolic 63–126; BP diastolic 35–72
[2016-05-23 00:35] LABS: POINT-OF-CARE METER ID UU13113803
[2016-05-23 06:34] LABS: HEMATOCRIT 27.5 % (38.0-50.0); MCH 34.5 PG (29.0-34.0); MCHC 33.1 G/DL (30.0-36.0); MCV 104.2 FL (86-99); MEAN PLAT.VOLUME 11.8 uM^3 (9.0-12.4); PLATELET COUNT 247 K/uL (156-360); RBC DIS.WIDTH-CV 16.9 % (11.8-14.6); RBC DIS.WIDTH-SD 63.8 % (39-53); RED BLOOD COUNT 2.64 M/uL (4.00-5.50); WHITE BLOOD COUNT 16.7 K/uL (4.1-10.2)
[2016-05-23 06:36] LABS: POINT-OF-CARE METER ID UU13113803
[2016-05-23 07:01] LABS: ANION GAP 7 MEQ/L (2-14); CHLORIDE 104 MEQ/L (99-109); GFR ESTIMATE (CALCULATED) > 59 mL/min/; GLUCOSE 106 mg/dL (70-99); POTASSIUM 4.3 MEQ/L (3.7-5.4); SAMPLE HEMOLYSIS CHECK 0; SAMPLE ICTERIC CHECK 0; SAMPLE LIPEMIA CHECK 0; SODIUM 137 MEQ/L (136-147); UREA NITROGEN (BUN) 22 mg/dL (9-23)
[2016-05-23 07:50] LABS: BASOPHIL COUNT 0.1 K/uL (0-0.1); EOSINOPHIL (%) 8.8 % (0-5); EOSINOPHIL COUNT 1.5 K/uL (0-0.3); HEMATOLOGY COMMENT 1 SMEAR COMPATIBLE; IMMATURE GRANULOCYTE (%) 0.7 % (0.0-0.7); IMMATURE GRANULOCYTE COUNT 0.1 K/uL; LYMPHOCYTE COUNT 2.3 K/uL (1.0-2.8); MONOCYTE (%) 6.3 % (3-12); MONOCYTE COUNT 1.1 K/uL (0-0.8); NEUTROPHIL (%) 70.3 % (45-76); NEUTROPHIL COUNT 11.8 K/uL (1.8-6.4)
[2016-05-23 12:22] LABS: POINT-OF-CARE METER ID UU13113803
== END 2016-05-23 18:50 | DRG 917 ==
LOC: EME 15:40 → 4EAST 20:16 → 4WEST 20:16 → EDOF 20:16 → 4EAST 21:19 → 4WEST 05-07 12:24
PROVIDERS: Emergency Medicine; Hospitalist; Internal Medicine; Internal Medicine Critical Care Medicine; Internal Medicine Nephrology; Internal Medicine Pulmonary Disease; Specialist
PROC: 0BH17EZ Insertion of Endotracheal Airway into Trachea, Via Natural or Artificial Opening (ICD-10-PCS; principal; 2016-05-07)
PROC: 5A1955Z Respiratory Ventilation, Greater than 96 Consecutive Hours (ICD-10-PCS; principal; 2016-05-07)
PROC: 0BC88ZZ Extirpation of Matter from Left Upper Lobe Bronchus, Via Natural or Artificial Opening Endoscopic (ICD-10-PCS; 2016-05-12)
PROC: 0BCB8ZZ Extirpation of Matter from Left Lower Lobe Bronchus, Via Natural or Artificial Opening Endoscopic (ICD-10-PCS; 2016-05-12)
PROC: 0BC58ZZ Extirpation of Matter from Right Middle Lobe Bronchus, Via Natural or Artificial Opening Endoscopic (ICD-10-PCS; 2016-05-12)
PROC: 0BC48ZZ Extirpation of Matter from Right Upper Lobe Bronchus, Via Natural or Artificial Opening Endoscopic (ICD-10-PCS; 2016-05-12)
PROC: 0BC68ZZ Extirpation of Matter from Right Lower Lobe Bronchus, Via Natural or Artificial Opening Endoscopic (ICD-10-PCS; 2016-05-12)
PROC: 09JK4ZZ Inspection of Nasal Mucosa and Soft Tissue, Percutaneous Endoscopic Approach (ICD-10-PCS; 2016-05-16)
DX: T42.4X1A Poisoning by benzodiazepines, accidental (unintentional), initial encounter (principal); J44.0 Chronic obstructive pulmonary disease with (acute) lower respiratory infection; J15.212 Pneumonia due to Methicillin resistant Staphylococcus aureus; J96.01 Acute respiratory failure with hypoxia; G93.41 Metabolic encephalopathy; N17.9 Acute kidney failure, unspecified; T40.5X1A Poisoning by cocaine, accidental (unintentional), initial encounter; J44.1 Chronic obstructive pulmonary disease with (acute) exacerbation; I82.411 Acute embolism and thrombosis of right femoral vein; I82.512 Chronic embolism and thrombosis of left femoral vein; E87.0 Hyperosmolality and hypernatremia; E46 Unspecified protein-calorie malnutrition; L03.115 Cellulitis of right lower limb; L03.116 Cellulitis of left lower limb; E87.6 Hypokalemia; I95.9 Hypotension, unspecified; R04.0 Epistaxis; N39.0 Urinary tract infection, site not specified; I10 Essential (primary) hypertension; G82.20 Paraplegia, unspecified; Z66 Do not resuscitate; F10.239 Alcohol dependence with withdrawal, unspecified; E87.70 Fluid overload, unspecified; J34.89 Other specified disorders of nose and nasal sinuses; F95.2 Tourette's disorder; G89.4 Chronic pain syndrome; J84.10 Pulmonary fibrosis, unspecified; K80.20 Calculus of gallbladder without cholecystitis without obstruction; Z78.1 Physical restraint status; R29.6 Repeated falls; G62.9 Polyneuropathy, unspecified; F11.10 Opioid abuse, uncomplicated; F32.9 Major depressive disorder, single episode, unspecified; Z86.711 Personal history of pulmonary embolism; Z86.73 Personal history of transient ischemic attack (TIA), and cerebral infarction without residual deficits
CPT/HCPCS: 36600; 70450; 71010; 71275; 73522; 80048; 80048 91; 80053; 80076; 80202; 81003; 82040; 82140; 82550; 82803; 82948; 83605; 83735; 83880; 84100; 84484; 84999; 85025; 85027; 85520; 85610; 85730; 87040; 87070; 87077; 87086; 87106; 87147; 87186; 87205; 87502; 87641; 93005; 93970; 94002; 94003; 94640; 94640 76; 94667; 94668; 94760; 94799; 99202; 99281; 99285; C9113; G0480; J0456; J0690; J0696; J1120; J1630; J1650; J1815; J1885; J1940; J1956; J2020; J2060; J2250; J2270; J2704; J2920; J2930; J3010; J3370; J3411; J3475; J3480; J7030; J7040; J7042; J7050; J7070; J7120; P9045; P9047; S0030